=== PATIENT | female | born 1975 | race Caucasian/White ===

== ENCOUNTER 2017-04-06 11:23 | Emergency (ER) | payer OTHER ==
--- NOTE | ~2017-04-06 | CR72 ---
[facility] A Service of [facility] RADIOLOGY TEXT RESULTS PATIENT: NEELAM AGUIAR LOCATION: SED : 71 UNIT #: [id number] AGE: [address]: Yesika Aguirre MD SEX: F ORDER DR: [id number] [place] [id number] E MR#: [id number] Acc #: [id number] NAME: NEELAM AGUIAR : 1975 SEX: F STUDY DATE/TIME: 04/06/2017 UNIT: SED ROOM: STUDY DESCRIPTION: CR Chest Single View Portable Attending Physician: Yesika Aguirre M.D. Ordering Physician: Yesika Aguirre M.D. Primary Care Physician: Jamir Atkinson M.D. MEDICAL IMAGING REPORT This report is preliminary unless electronic signature is present. EXAM Chest portable 04/06/2017 12:03 hours HISTORY 41-year-old with cough, wheezing for 2 days. Evaluate for pneumonia. COMPARISON 09/22/2016 FINDINGS Portable upright chest demonstrates low lung volumes. The cardiac, mediastinal and hilar contours are normal. There is patchy left perihilar and infrahilar density which I would favor is related to vascular crowding although early pneumonia is difficult to exclude given this technique. There are no effusions. IMPRESSION Low lung volumes with patchy density left perihilar and infrahilar region which I would favor is related to vascular crowding. It is difficult to exclude pneumonia in this area given the low lung volumes. Correlate with clinical symptoms. Consider followup two-view chest film if possible. Dictated by... Patricia Blanca M.D. THIS IS AN ELECTRONICALLY VERIFIED REPORT Patricia Blanca M.D. at 04/06/2017 2:30 PM SMM/cmkimo TD: 04/06/2017 13:57 JOB #: [id number] [facility] A Service of [facility] RADIOLOGY TEXT RESULTS PATIENT: NEELAM AGUIAR LOCATION: SED : 71 UNIT #: [id number] AGE: [address]: Yesika Aguirre MD SEX: F ORDER DR: MEDICAL IMAGING REPORT Page 1 of 1
[~2017-04-06 11:23] MED LIST: COREG12.5 M1 PO; CYMBALTA PO; MYSOLINE50 MG DOB; NEURONTIN300 MG PO; PHENERGAN25 MG PO; QUIL; TRAMADOL HCL50 M1 PO; ZOFRAN PO
[2017-04-06] MEDS ORDERED: ALBUTEROL17 GM INH (11:27)
== END 2017-04-06 13:05 | disposition home or self-care (01) ==
LOC: SED 11:23
DX: J06.9 Acute upper respiratory infection, unspecified (principal); I10 Essential (primary) hypertension; Z79.899 Other long term (current) drug therapy; Z88.5 Allergy status to narcotic agent; Z91.040 Latex allergy status
CPT/HCPCS: 71010; 94640; 99284